=== PATIENT | male | born 1975 | race Caucasian/White ===

== ENCOUNTER 2017-03-08 15:46 | Emergency (ER) | payer BC ==
[~2017-03-08] VITALS: Ht 177.8 cm; Wt 158.8 kg
--- NOTE | ~2017-03-08 | CT71 ---
[facility] A Service [facility] RADIOLOGY TEXT RESULTS PATIENT: CYNTHIA MUÑIZ LOCATION: SED : 77 UNIT #: [id number] AGE: [address]: NAHUM MARTINEZ SEX: M ORDER DR: [id number] [place] [id number] E MR#: [id number] Acc #: [id number] NAME: CYNTHIA MUÑIZ : 1975 SEX: M STUDY DATE/TIME: 03/08/2017 16:45 UNIT: SED ROOM: STUDY DESCRIPTION: CT Head Wo Contrast Attending Physician: Nahum Martinez R.N. Ordering Physician: Nahum Martinez R.N. Primary Care Physician: Felix Phillips M.D. MEDICAL IMAGING REPORT This report is preliminary unless electronic signature is present. EXAM Noncontrast head CT. HISTORY Headache, dizziness, weakness and slurred speech since noon today. COMPARISON: Head CT 12/06/[address] exam was performed with one or more of the following radiation dose reduction techniques: automatic exposure control, adjustment of mA and/or kV according to patient size, and iterative reconstruction. FINDINGS Axial noncontrast imaging brain demonstrates brain parenchyma to be normal. No mass, mass effect or midline shift. No hemorrhage or abnormal extraaxial fluid collections. Ventricles, sulci and basilar cisterns appear normal. Bony calvaria skull base mastoids, orbits and sinuses unremarkable. IMPRESSION Negative head CT Dictated by... Sampson Hernandez M.D. THIS IS AN ELECTRONICALLY VERIFIED REPORT Sampson Hernandez M.D. at 03/09/2017 3:11 PM NEELS/caron [facility] A [facility] RADIOLOGY TEXT RESULTS PATIENT: CYNTHIA MUÑIZ LOCATION: SED : [birth year] UNIT #: [id number] AGE: [address]: NAHUM MARTINEZ SEX: M ORDER DR: TD: 03/09/2017 11:16 JOB #: [id number] MEDICAL IMAGING REPORT Page 1 of 1
--- NOTE | ~2017-03-08 | EKG ---
PATIENT: CYNTHIA MUÑIZ UNIT #: [id number] Ventricular Rate: 66 BPM Atrial Rate: 66 BPM P-R Interval: 166 ms QRS Duration: 90 ms Q-T Interval: 394 ms QTC Calculation(Bezet): 413 ms P [place]: 34 degrees Calculated R [place]: 18 degrees Calculated T [place]: 34 degrees Diagnosis Line: Normal sinus rhythm Diagnosis Line: Normal ECG Diagnosis Line: No previous ECGs available Diagnosis Line: Confirmed by GLENN WAGNER MD ([id number]) on Diagnosis Line: 03/10/2017 11:19:04 AM INTERPRETING MD: KRISTY YAP
--- NOTE | ~2017-03-08 | CT4 ---
[facility] A Service [facility] RADIOLOGY TEXT RESULTS PATIENT: CYNTHIA MUÑIZ LOCATION: SED : [birth year] UNIT #: [id number] AGE: [address]: NAHUM MARTINEZ SEX: M ORDER DR: [id number] [place] [id number] E MR#: [id number] Acc #: [id number] NAME: CYNTHIA MUÑIZ : 1975 SEX: M STUDY DATE/TIME: 03/08/2017 16:48 UNIT: SED ROOM: STUDY DESCRIPTION: CT Abd and Pelv Wo Cont Attending Physician: Nahum Martinez R.N. Ordering Physician: Fernando Daugherty M.D. Primary Care Physician: Felix Phillips M.D. MEDICAL IMAGING REPORT This report is preliminary unless electronic signature is present. EXAM CT abdomen and pelvis without contrast HISTORY Abdominal pain, diarrhea, dark stools for 2-[address] abdomen and pelvis 05/31/2009. FINDINGS Axial images performed through the abdomen and pelvis without contrast. Multiplanar reconstructed images reviewed. This CT examination was performed with one or more of the following radiation dose reduction techniques: automatic exposure control, adjustment of mA and/or kV according to patient size, and iterative reconstruction. ABDOMEN: Lung bases unremarkable. Liver, spleen, gallbladder, pancreas, kidneys and adrenal glands appear normal. Visualized GI tract unremarkable. No free air or free fluid. Diverticulum seen in the right colon. PELVIS: Bladder unremarkable. Osseous structures appear normal. Mild obesity. IMPRESSION No acute intraabdominal or intrapelvic pathology identified. Dictated by... Sampson Hernandez M.D. THIS IS AN ELECTRONICALLY VERIFIED REPORT [facility] A Service [facility] RADIOLOGY TEXT RESULTS PATIENT: CYNTHIA MUÑIZ LOCATION: SED : [birth year] UNIT #: [id number] AGE: [address]: NAHUM MARTINEZ SEX: M ORDER DR: Sampson Hernandez M.D. at 03/09/2017 3:11 PM MADDISON/cherelle TD: 03/09/2017 12:13 JOB #: [id number] MEDICAL IMAGING REPORT Page 1 of 1
[~2017-03-08 15:46] MED LIST: ATARAX PO; VICODIN PO
[2017-03-08] MEDS ORDERED: BUSPAR (15:57)
[2017-03-08] MEDS ORDERED: ZYRTEC10 M1 (15:58)
[2017-03-08] MEDS ORDERED: PREDNISONE (15:58)
[2017-03-08] MEDS ORDERED: WELLBUTRIN (15:58)
[2017-03-08 16:26] LABS: BASOPHIL# 0.1 X10e3 (0-0.3); BASOPHIL% 1.4 % (0-2.5); EOSINOPHIL# 0.3 X10e3 (0-0.7); EOSINOPHIL% 3.6 % (0.0-7.0); HEMATOCRIT 45.7 % (38.0-50.0); HEMOGLOBIN 15.4 gm/dL (13.0-16.0); LYMPHOCYTE# 1.5 X10e3 (1.0-3.5); LYMPHOCYTE% 16.3 % (17.0-45.0); MEAN CELL VOLUME 87.5 FL (83-96); MEAN CORPUSCULAR HEMOGLOBIN 29.6 PG (28-34); MEAN CORPUSCULAR HGB CONC 33.8 g/dL (30-36); MEAN PLATELET VOLUME 8.4 FL (6.5-11.5); MONOCYTE# 0.9 X10e3 (0-1.0); MONOCYTE% 10.3 % (3.0-12.0); NEUTROPHIL# 6.1 X10e3 (1.5-7.1); NEUTROPHIL% 68.4 % (40-75); PLATELET COUNT 325 X10e3 (140-420); RED BLOOD COUNT 5.22 X10e (3.90-5.60); RED CELL DISTRIBUTION WIDTH 14.1 % (11.0-15.5); WHITE BLOOD COUNT 8.9 X10e3 (4.0-10.5)
[2017-03-08 16:32] LABS: DIFF IND NO
[2017-03-08 16:44] LABS: BILIRUBIN, DIRECT 0.1 mg/dL (0.0-0.2); BILIRUBIN,INDIRECT 0.8 mg/dL (0.0-0.9); BILIRUBIN,TOTAL 0.9 mg/dL (0.2-2.0); BUN/CREATININE RATIO 12.22; CALCIUM SERUM 8.5 mg/dL (8.4-10.2); CREATININE SERUM 0.9 mg/dL (0.6-1.4); GLOM FILT RATE Estimated 106.5 mL/min (>60); POTASSIUM 3.8 mmol/L (3.5-5.1); PROTEIN TOTAL SERUM 6.9 g/dL (6.0-8.3)
[2017-03-08 17:35] LABS: POC - CKMB 1.3 ng/mL (0.0-7.9); POC - MYOGLOBIN 55.2 ng/mL (0.0-169.0); POC - TROPONIN <0.05 ng/mL (<=0.05)
[2017-03-08 17:38] LABS: ARTERIAL BLD GAS O2 SATURATION 96.1 % (90.0-100.0); ARTERIAL BLOOD GAS CARBOXY HB 1.8 %sat (0.0-9.0); ARTERIAL BLOOD GAS HCO3 23.3 mmol/L
[2017-03-08 17:39] LABS: ARTERIAL BLOOD GAS ALLEN TEST Y; ARTERIAL BLOOD GAS ART SITE RIGHT RADIAL; ARTERIAL DRAW? YES
[2017-03-08 17:41] LABS: URINE SOURCE CLEAN CATCH
[2017-03-08 17:43] LABS: URINE APPEARANCE CLEAR; URINE BILIRUBIN NEG (NEG); URINE BLOOD TRACE-INTACT (NEG); URINE COLOR YELLOW; URINE GLUCOSE NEG (NORM); URINE KETONE NEG (NEG); URINE LEUKOCYTE ESTERASE NEG (NEG); URINE NITRATE NEG (NEG); URINE PROTEIN NEG (NEG); URINE UROBILINOGEN 0.2 MG/DL (NORM)
[2017-03-08 18:00] LABS: MICRO INDICATED? YES; URINE BACTERIA NEG (NEG); URINE RBC 0-2 /[HPF] (0-2); URINE SQUAMOUS EPITHELIAL CELL FEW /[HPF]; URINE WBC 0-2 /[HPF] (0-5)
== END 2017-03-08 19:47 | disposition home or self-care (01) ==
LOC: SED 15:46
PROVIDERS: Emergency Medicine; Nurse Practitioner
DX: H81.10 Benign paroxysmal vertigo, unspecified ear (principal); F41.1 Generalized anxiety disorder; R19.7 Diarrhea, unspecified; J45.909 Unspecified asthma, uncomplicated; Z98.890 Other specified postprocedural states
CPT/HCPCS: 36415; 36600; 70450; 74176; 80048; 80076; 81003; 82270; 82553; 82803; 83874; 84484; 85025; 93005; 96361; 96374; 96375; 99285; J2060; J2405